=== PATIENT | female | born 1995 | race Caucasian/White ===

== ENCOUNTER → 2018-07-21 | Outpatient (CLI) | payer MEDICAID ==
--- NOTE | 2018-07-21 12:46 | Diagnostic Imaging Report ---
INDICATION: survey. TECHNIQUE: Multiple real-time grayscale images were obtained over the gravid uterus. COMPARISON: None. FINDINGS: There are no prior studies available for comparison. There is a single live fetus in cephalic presentation. heart motion was noted, and a rate of 143 BPM was recorded. There were no abnormalities identified, although the cord insertion was not well visualized due to lie. The growth parameters are fairly uniform with the exception of the femur length which trails the other measurements by approximately 2 weeks. The placenta is anterior, and there is no previa. The amniotic fluid volume is within normal limits. IMPRESSION: 1. There is a single live fetus of approximately 30 weeks 4 days gestation, +/-3 weeks. The EDC is September 25, 2018. 2. There were no abnormalities identified, although the cord insertion was not well visualized. If further evaluation is desired, then a short-term (2-4 week) followup exam would be recommended. 3. The growth parameters are fairly uniform with the exception of the femur length. Biometrical measurements are as follows: Biparietal 7.83 cm, age 31 weeks 3 days. Head circumference 28.87 cm, age 31 weeks 6 days. Abdominal circumference 26.06 cm, age 30 weeks 2 days. Femur length 5.31 cm, age 28 weeks 2 days. Sonographic estimate age: 30 weeks 4 days. Sonographic estimated date of delivery: 09/25/2018. Estimated Weight: 1457 gm (+/- 213 gm). LMP percentile: 40%. heart rate: 143 beats per minute. number: 1 of 1. Dictated by: Dictated on workstation # [id number]
== END ==
LOC: RAD 09:22
PROVIDERS: ATTEND Obstetrics & Gynecology
DX: Z36.89 Encounter for other specified antenatal screening (principal); Z3A.30 30 weeks gestation of pregnancy
CPT/HCPCS: 76805

== ENCOUNTER 2018-08-23 17:15 | Inpatient (IN) | payer MEDICAID ==
[2018-08-23] VITALS (8 sets, daily range): BP systolic 101–135; BP diastolic 66–83
[~2018-08-23] VITALS: Ht 160 cm; Wt 81.8 kg
[2018-08-23] MEDS ORDERED: FERR-84 PO (17:50)
[2018-08-23] MEDS ORDERED: PNV11TAB5 PO (17:50)
[2018-08-23 17:54] LABS: BILIRUBIN,URINE NEGATIVE (NEGATIVE); CLARITY,URINE CLEAR; COLOR,URINE YELLOW; GLUCOSE, URINE (UA) NEGATIVE (NEGATIVE); KETONES,URINE NEGATIVE (NEGATIVE); LEUKOCYTE ESTERASE ,URINE 2+ (NEGATIVE); NITRITE,URINE NEGATIVE (NEGATIVE); PH,URINE 7 (5-9); PROTEIN,URINE NEGATIVE (NEGATIVE); UROBILINOGEN,URINE NORMAL (NORMAL)
[2018-08-23 18:02] LABS: BACTERIA,URINE RARE /HPF
[2018-08-23] MEDS ORDERED: D5 LR IV SOLUTION 1,000 ML IV ONE ×2 (18:07→18:15)
[2018-08-23] MEDS ORDERED: BETAMETHASONE ACE/NA PHOS 6 MG/ML (CELESTONE SOLUSPAN) ONE (19:23)
[2018-08-23] MEDS ORDERED: ceFAZolin 1,000 MG/10 ML (ANCEF) VIAL ONE (19:24)
[2018-08-23] MEDS ORDERED: NS (IVPB) 50 ML ONE (19:25)
[2018-08-23] MEDS: ceFAZolin INJECTION 1,000 MG in NS (IVPB) 50 ML IV SCH (19:35)
[2018-08-23] MEDS: D5 LR IV SOLUTION 1,000 ML IV SCH (20:51)
[2018-08-23 21:22] LABS: BASOPHILS % (AUTO) 0 % (0-10); EOSINOPHILS # (AUTO) 0.3 10^3/uL (0.0-0.3); EOSINOPHILS % (AUTO) 3 % (0-10); HEMATOCRIT 30 % (35-52); LYMPHOCYTES # (AUTO) 2.5 X 10^3 (1.0-4.0); LYMPHOCYTES % (AUTO) 24 % (12-44); MEAN CORPUSCULAR HEMOGLOBIN 30 PG (25-34); MEAN CORPUSCULAR HGB CONC 34 G/DL (32-36); MEAN CORPUSCULAR VOLUME 87 FL (80-99); MEAN PLATELET VOLUME 10.3 FL (7.4-10.4); MONOCYTES # (AUTO) 0.7 X 10^3 (0.0-1.0); MONOCYTES % (AUTO) 6 % (0-12); NEUTROPHILS # (AUTO) 7.1 X 10^3 (1.8-7.8); NEUTROPHILS % (AUTO) 67 % (42-75); PLATELET COUNT 246 10^3/uL (130-400); RED BLOOD COUNT 3.38 10^6/uL (4.35-5.85); RED CELL DISTRIBUTION WIDTH 13.1 % (10.0-14.5); WHITE BLOOD COUNT 10.7 10^3/uL (4.3-11.0)
[2018-08-23] MEDS ORDERED: SUFENTA 0.6MCG/ML BUPIVA 0.125 100 ML ONE (23:26)
[2018-08-23] MEDS ORDERED: BUPIVACAINE 0.25% 30 ML (SENSORCAINE) VIAL ONE (23:27)
[2018-08-23] MEDS ORDERED: fentaNYL INJECTION 100 MCG/2 ML AMP ONE (23:27)
[2018-08-24] VITALS (55 sets, daily range): BP systolic 85–125; BP diastolic 46–75
[2018-08-24] MEDS ORDERED: LACTATED RINGERS 1,000 ML IV SCH (00:11)
[2018-08-24] MEDS ORDERED: METOCLOPRAMIDE INJ 10 MG/2 ML (REGLAN) IV PRN (00:15)
[2018-08-24] MEDS ORDERED: diphenhydrAMINE 50 MG/ML INJ (BENADRYL) IV PRN (00:15)
[2018-08-24] MEDS ORDERED: NALOXONE 0.4 MG/ML 1 ML (NARCAN) VIAL IV PRN ×2 (00:15)
[2018-08-24] MEDS ORDERED: ONDANSETRON 4 MG/2 ML (SDV) Z0FRAN IV PRN (00:15)
[2018-08-24] MEDS ORDERED: ceFAZolin 1,000 MG/10 ML (ANCEF) VIAL ONE (01:06)
[2018-08-24] MEDS ORDERED: NS (IVPB) 50 ML ONE (01:06)
[2018-08-24] MEDS: ceFAZolin INJECTION 1,000 MG in NS (IVPB) 50 ML IV SCH ×2 (01:32→07:30)
[2018-08-24] MEDS: D5 LR IV SOLUTION 1,000 ML IV SCH ×2 (04:20→12:48)
[2018-08-24] MEDS ORDERED: OXYTOCIN/NORMAL SALINE 500 ML IV SCH ×2 (07:15→09:02)
[2018-08-24] MEDS ORDERED: OXYTOCIN/NORMAL SALINE 500 ML IV ONE (07:21)
[2018-08-24] MEDS: EPIDURAL (SUFENTA 0.6MCG/ML BUPIVA 0.125%) 100 ML BAG EPI PRN ×2 (07:31)
[2018-08-24] MEDS: CATHETER FLUSH 10 ML SYR IV SCH ×2 (09:01→16:35)
--- NOTE | 2018-08-24 09:09 | History & Physical ---
History and Physical Date Seen by Provider: Aug 24, 2018 Time Seen by Provider: 09:04 This patient is a 23-year-old A1 white female patient of Dr. Fontana for whom I am covering. She is admitted last evening with contractions and labor. Gestational age was just past 34 weeks. She was given the initial dose of betamethasone 12 mg IM was also started empirically on Ancef both for GBS prophylaxis and for him. Coverage for possible bladder infection. She did experience spontaneous rupture membranes this morning between 7 and 8 a.m. with clear fluid. Her history includes a previous delivery at around 36 weeks gestation. She apparently has had no particular problems with this to date. Allergies are none Medications are vitamins Medical social and surgical histories are per the antepartum record HEENT exam is normal Neck is supple no lymphadenopathy no thyromegaly Abdomen is gravid soft nontender nondistended Extremities show no clubbing cyanosis. Pelvic exam currently shows a cervix 7+ CM. dilated very soft and flexible, the presenting part is the vertex at the -1 station, and there is gross rupture membranes monitor shows contractions every 2-3 minutes. There is a normal heart rate pattern. Laboratory Tests Test 08/23/18 17:30 08/23/18 18:19 Range/Units Urine Color YELLOW Urine Clarity CLEAR Urine pH 7 5-9 Urine Specific [place] 1.010 L 1.016-1.022 Urine Protein NEGATIVE NEGATIVE Urine Glucose (UA) NEGATIVE NEGATIVE Urine Ketones NEGATIVE NEGATIVE Urine Nitrite NEGATIVE NEGATIVE Urine Bilirubin NEGATIVE NEGATIVE Urine Urobilinogen NORMAL NORMAL MG/DL Urine Leukocyte Esterase 2+ H NEGATIVE Urine RBC (Auto) NEGATIVE NEGATIVE Urine RBC NONE /HPF Urine WBC 5-10 H /HPF Urine Squamous Epithelial Cells 2-5 /HPF Urine Crystals NONE /LPF Urine Bacteria RARE /HPF Urine Casts NONE /LPF Urine Mucus NEGATIVE /LPF Urine Culture Indicated YES White Blood Count 10.7 4.3-11.0 10^3/uL Red Blood Count 3.38 L 4.35-5.85 10^6/uL Hemoglobin 10.0 L 11.5-16.0 G/DL Hematocrit 30 L 35-52 % Mean Corpuscular Volume 87 80-99 FL Mean Corpuscular Hemoglobin 30 25-34 PG Mean Corpuscular Hemoglobin Concent 34 32-36 G/DL Red Cell Distribution Width 13.1 10.0-14.5 % Platelet Count 246 130-400 10^3/uL Mean Platelet Volume 10.3 7.4-10.4 FL Neutrophils (%) (Auto) 67 42-75 % Lymphocytes (%) (Auto) 24 12-44 % Monocytes (%) (Auto) 6 0-12 % Eosinophils (%) (Auto) 3 0-10 % Basophils (%) (Auto) 0 0-10 % Neutrophils # (Auto) 7.1 1.8-7.8 X 10^3 Lymphocytes # (Auto) 2.5 1.0-4.0 X 10^3 Monocytes # (Auto) 0.7 0.0-1.0 X 10^3 Eosinophils # (Auto) 0.3 0.0-0.3 10^3/uL Basophils # (Auto) 0.0 0.0-0.1 10^3/uL Assessment and plan labor at 34+ weeks gestation. Patient has had spontaneous rupture membranes as well. Patient is being covered empirically with Ancef for GBS prophylaxis and a possible urinary tract infection. A single dose of betamethasone has been given. Pediatrics is aware of the impending delivery Allergies and Home Medications Allergies Coded Allergies: No Known Drug Allergies (Unverified , 08/23/18) Home Medications Ferrous Sulfate 325 Mg Tablet, 325 MG PO DAILY, (Reported) Pwa525/FA/Omega3/Dha/Fish Oil 1 Each Tab.chew, 2 EACH PO DAILY, (Reported) Patient Home Medication List Home Medication List Reviewed: Yes Clinical Quality Measures DVT/VTE Risk/Contraindication: Risk Factor Score Per Nursin RFS Level Per Nursing on Admit: 2=Moderate NANDINI CASH MD Aug 24, 2018 09:09
[2018-08-24] MEDS ORDERED: KETOROLAC 30 MG/ML VIAL IV SCH (09:15)
[2018-08-24] MEDS ORDERED: MEASLES,MUMPS,RUBELLA 1 EA INJ SC ONE (09:15)
[2018-08-24] MEDS ORDERED: TETANUS,DIPTH,PERTUSS P/F (BOOSTRIX) 0.5 ML VIAL IM ONE (09:15)
[2018-08-24] MEDS ORDERED: ONDANSETRON 4 MG/2 ML (SDV) Z0FRAN IVP PRN (09:15)
[2018-08-24] MEDS ORDERED: oxyCODONE/APAP 5/325MG (PERCOCET 5) TABLET PO PRN (09:15)
[2018-08-24] MEDS ORDERED: BENZOCAINE/MENTHOL (DERMOPLAST) 56 ML CAN TP PRN (09:15)
[2018-08-24] MEDS ORDERED: IBUP-1780 PO (09:18)
[2018-08-24] MEDS ORDERED: OXYC1TAB87 PO (09:18)
[2018-08-24] MEDS ORDERED: DOCU100C37 PO (09:18)
--- NOTE | 2018-08-24 09:19 | Discharge Instructions ---
Discharge Instructions Discharge Medications New, Converted or Re-Newed RX: RX on Chart Patient Instructions Patient Instructions: As directed Return to The Hospital For: as directed Activity & Diet Discharge Diet: No Restrictions Activity as Tolerated: No Orders-Post D/C & Referrals Follow Up Appt: Call to make follow up appt. for patient with Dr. Fontana in 6 weeks. Activity Per routine post vaginal delivery instructions. Diet as tolerated Patient may shower or tub bathe as desired. NANDINI CASH MD Aug 24, 2018 09:19
--- NOTE | 2018-08-24 12:00 | OPERATIVE REPORT ---
DATE OF SERVICE: 08/24/2018 DELIVERY NOTE SURGEON: Nandini Mendenhall MD. The patient delivered by spontaneous vaginal delivery at 34-4/7 weeks' gestation of a viable male with Apgars of 8 and 8 at one and five minutes respectively, weight of 5 pounds 5 ounces, time of 0947 hours. The infant delivered over an intact perineum under epidural analgesia. The was bulb suctioned on delivery of the head and again on completion of delivery. The umbilical cord when becoming pulseless was doubly clamped, father cut the cord, the baby was passed transiently to mom's abdomen at Dr. Robles's request. Dr. Robles then took the baby to the warmer for evaluation. The placenta was delivered fairly promptly spontaneously [place]. It was normal with a 3-vessel cord. The cervix, vagina, rectum and perineum were examined and found intact. The patient did have some mild superficial abrasions in the left periurethral area. Sponge and needle counts were correct on completion of the delivery. Estimated blood loss was around 100 mL. The patient tolerated the delivery well and remained in the LDR. The baby was taken to the nursery under the care of Dr. Robles with prematurity as complications. Job ID: [id number] DocumentID: [id number] Dictated Date: 08/24/2018 10:00:18 Recovery Coordinator Date: 08/24/2018 12:00:21 Dictated By: NANDINI MENDENHALL MD MTDD
[2018-08-24] MEDS ORDERED: CEPH-507 PO (15:33)
[2018-08-24] MEDS ORDERED: BETAMETHASONE ACE/NA PHOS 6 MG/ML (CELESTONE SOLUSPAN) IM SCH (19:30)
[2018-08-24] MEDS ORDERED: DOCUSATE SODIUM 100 MG (COLACE) CAP PO SCH (21:00)
--- NOTE | 2018-08-25 09:12 | Anesthesia-Regional Post-Op ---
Regional Patient Condition Mental Status: Alert, Oriented x3 Circulation: Same as Pre-Op Headache: Absent Sensation: Full Recovery Motor Block: Absent Post Op Complications Complications None Follow Up Care/Instructions Patient Instructions None needed. Anesthesia/Patient Condition Patient is already discharged because her baby was discharged. She had no anesthesia complications per nursing staff. LEXX CADET DO Aug 25, 2018 09:12
[2018-08-25] MEDS ORDERED: IBUPROFEN 800 MG (MOTRIN) TAB PO SCH (09:15)
== END 2018-08-24 16:48 | disposition home or self-care (01) | DRG 806 ==
LOC: LDRP 17:15 → WSo 17:15 → LDRP 22:21 → WSo 08-24 → LDRP 08-24
PROVIDERS: ADMIT Obstetrics & Gynecology; ATTEND Obstetrics & Gynecology
PROC: 10E0XZZ Delivery of Products of Conception, External Approach (ICD-10-PCS; principal; 2018-08-24)
DX: O60.14X0 Preterm labor third trimester with preterm delivery third trimester, not applicable or unspecified (principal); O23.43 Unspecified infection of urinary tract in pregnancy, third trimester; O99.333 Smoking (tobacco) complicating pregnancy, third trimester; F17.210 Nicotine dependence, cigarettes, uncomplicated; Z3A.34 34 weeks gestation of pregnancy; Z37.0 Single live birth
CPT/HCPCS: 36415; 81000; 85025; 86850; 86900; 86901; 87088; 99212